=== PATIENT | female | born 1995 | race African-American/Black ===

== ENCOUNTER → 2025-03-15 | Outpatient (CLI) | payer MEDICAID | LOC: M EKG 13:35 | PROVIDERS: ATTEND Student in an Organized Health Care Education/Training Program | DX: R00.2 Palpitations (principal) ==

== ENCOUNTER → 2025-03-15 | Outpatient (REF) | payer MEDICAID ==
[2025-03-15 13:03] LABS: PLATELET COUNT, AUTOMATED 354 10^3/uL (150-450)
[2025-03-20 18:07] LABS: TESTOSTERONE FREE (DIRECT) 6.7 pg/mL (0.1-6.4); TESTOSTERONE TOTAL FOR T&D 70.0 ng/dL (2-45)
== END ==
LOC: M LAB REF 11:50
PROVIDERS: ATTEND Student in an Organized Health Care Education/Training Program
DX: R00.2 Palpitations (principal); N92.6 Irregular menstruation, unspecified; R63.5 Abnormal weight gain